=== PATIENT | female | born 1990 | race Caucasian/White ===

== ENCOUNTER 2018-02-08 18:55 | Inpatient (IN) | payer OTHER ==
[2018-02-08 20:34] VITALS: BMI 39.2
[2018-02-08] MEDS ORDERED: DINOPROSTONE 10 MG VAGINAL SUPPOSITORY VG ONE (20:45)
[2018-02-08] MEDS ORDERED: TUBERCULIN PPD 5 TU/0.1ML SYRINGE (IN PATIENT USE ONLY) ID ONE (21:00)
[2018-02-08 21:22] LABS: BASO % 0.2 % (0-2.0); EOS % 0.8 % (0-4.5); HEMOGLOBIN 13.2 GM/dL (10.7-15.3); LYMPH % 29.8 % (8-40); MCH 28.8 pg (25.7-33.7); MEAN CELL VOLUME 84.7 fl (80-96); MEAN PLT VOLUME 8.8 fl (7.5-11.1); MONO % 8.8 % (3.8-10.2); NEUT % 60.4 % (42.8-82.8); PLATELET COUNT 253 K/MM3 (134-434); RDW 14.4 % (11.6-15.6); WHITE BLOOD COUNT 7.5 K/mm3 (4.0-10.0)
[2018-02-08 21:29] LABS: ANION GAP 11 (8-16); BLOOD UREA NITROGEN 7 mg/dL (7-18); CALCIUM 9.3 mg/dL (8.5-10.1); CHLORIDE 106 mmol/L (98-107); CO2 23 mmol/L (21-32); CREATININE 0.6 mg/dL (0.55-1.02); GLUCOSE,RANDOM 83 mg/dL (74-106); POTASSIUM 4.3 mmol/L (3.5-5.1); SODIUM 140 mmol/L (136-145)
[2018-02-08 21:35] LABS: INR 1.05 (0.82-1.09); PROTHROMBIN TIME (PATIENT) 11.9 SEC (9.7-13.0)
--- NOTE | 2018-02-08 22:28 | HP ---
Past Medical History - Primary Care Physician PCP:: Jasbir Zambrano - Admission Chief Complaint: 40.5 weeks, postdate for cervidil induction History of Present Illness: 27 yo g 1 p0 edc by sono 02/03/18 referred for cervidil induction, cx 1 cm 50 vc -3 mi, fhr cat 1, , cervidil induction risks discussed , ulternatives explained History Source: Patient Limitations to Obtaining History: No Limitations - Past Medical History ...: 1 ...Para: 0 ...Term: 0 ...: 0 ...Spon : 0 ...Induced : 0 ...Multiple Gestation: 0 ...LMP: 04/27/17 ... Weeks Gestation by Dates: 41.0 ...EDC by Dates: 02/01/18 ...EDC by Sono: 02/03/18 - Past Surgical History Hx Myomectomy: No Hx Transabdominal Cerclage: No - Smoking History Smoking history: Never smoked Have you smoked in the past 12 months: No - Alcohol/Substance Use Hx Alcohol Use: No - Social History Usual Living Arrangement: Yes: With Spouse History of Recent Travel: No Home Medications - Allergies Allergies/Adverse Reactions: Allergies Allergy/AdvReac Type Severity Reaction Status Date / Time No Known Allergies Allergy Verified 02/04/18 14:34 - Home Medications Home Medications: Ambulatory Orders Vitamins (Sjr) - 1 tab PO DAILY 02/04/18 Review of Systems - Review of Systems Constitutional: reports: No Symptoms Eyes: reports: No Symptoms HENT: reports: No Symptoms Neck: reports: No Symptoms Cardiovascular: reports: No Symptoms Respiratory: reports: No Symptoms Gastrointestinal: reports: No Symptoms Genitourinary: reports: No Symptoms Breasts: reports: No Symptoms Reported Musculoskeletal: reports: No Symptoms Integumentary: reports: No Symptoms Neurological: reports: No Symptoms Endocrine: reports: No Symptoms Hematology/Lymphatic: reports: No Symptoms Psychiatric: reports: No Symptoms Physical Exam - Maternity Vital Signs: Vital Signs Temperature 98.3 F 02/08/18 22:00 Pulse Rate 88 02/08/18 22:00 Respiratory Rate 20 02/08/18 22:00 Blood Pressure 135/77 02/08/18 22:00 O2 Sat by Pulse Oximetry (%) Constitutional: Yes: Well Nourished, No Distress, Calm Eyes: Yes: WNL, Conjunctiva Clear, EOM Intact HENT: Yes: WNL, Atraumatic, Normocephalic Neck: Yes: WNL, Supple, Trachea Midline Cardiovascular: Yes: WNL, Regular Rate and Rhythm Breast(s): Yes: WNL - Abdominal Exam/OB Fundal Height: 40 Number of Fetuses: Single Presentation: Vertex Contractions: No Intensity: Unaware Monitor Mode: External Heart Rate Location: [facility] Category: I Accelerations: Uniform Decelerations: None - Vaginal Exam/OB Vaginal Bleediing: No Speculum Exam: No Dilatation (cm): 1 Effacement (%): 50 Amniotic Membrane Status: Intact Presentation: Vertex/Position Station: -3 - Physical Exam Musculoskeletal: Yes: WNL Extremities: Yes: WNL Edema: Yes Edema: LLE: Trace, RLE: Trace Deep Tendon Reflex Grade: Normal +2 Psychiatric: Yes: WNL - Labs Lab Results: CBC, BMP 02/08/18 20:00 02/08/18 20:00 Hemorrhage Risk Assessment - Risk Factors Medium Risk Factors: Yes: None High Risk Factors: Yes: None Risk Score: 1 Risk Level: Medium Risk Problem List - Problems (1) Postmaturity , 40-42 weeks gestation Code(s): O48.0 - POST-TERM (2) Elective induction of labor planned Code(s): DJW9288 - Assessment/Plan admit, fhm, cervidil induction, risks expalined cervidil inserted at 10:10 pm
[2018-02-08] MEDS ORDERED: PROMETHAZINE HCL 25 MG/1 ML VIAL IVPUSH ONE (22:45)
[2018-02-08] MEDS ORDERED: BUTORPHANOL TARTRATE 1 MG/ML VIAL IVPUSH ONE (22:45)
--- NOTE | 2018-02-09 09:26 | PN ---
Ante-Partal Exam - Subjective Subjective: Patient reports back cramping No bleeding No leakage of fluid Vital Signs: Vital Signs Temperature 98.4 F 02/09/18 08:25 Pulse Rate 80 02/09/18 09:00 Respiratory Rate 18 02/09/18 09:00 Blood Pressure 123/75 02/09/18 09:00 O2 Sat by Pulse Oximetry (%) Bleeding: No Headache: No Visual changes: No Right upper quadrant pain: No - Contractions Contractions: Yes Regularity: Regular Intensity: Mild Monitor Mode: External - Exam during Labor Heart Rate: 125 Variability: Moderate Category: I Monitor Accelerations: Absent Monitor Decelerations: None Exam: Vaginal Dilatation (cm): 2 Effacement (%): 50 Amniotic Membrane Status: Intact Presentation: Vertex Station: -3 - Intrapartum Hemorrhage Risk Medium Risk Factors: None High Risk Factors: None Risk Score: 0 Risk Level: Low Risk - Assessment/Plan Assessment/Plan: 27 yo induction of labor 1. Improvement in cervical exam, will start pitocoin per protocol 2. GBS neg 3. Category I FHT 4. Will offer pain medication upon patient's request 5. Will proceed with expectant management
[2018-02-09] MEDS: DEXTROSE 5%-LACTATED RINGERS 1,000 ML IV SCH ×3 (09:30→19:14)
[2018-02-09] MEDS ORDERED: OXYTOCIN 30 UNITS in 0.9% NS 30 UNIT/500 ML INFUS.BAG IVPB SCH (10:00)
[2018-02-09] MEDS ORDERED: PROMETHAZINE HCL 25 MG/1 ML VIAL IVPUSH ONE (10:56)
[2018-02-09] MEDS ORDERED: BUTORPHANOL TARTRATE 1 MG/ML VIAL IVPUSH ONE (10:56)
[2018-02-09] MEDS ORDERED: BUTORPHANOL TARTRATE 1 MG/ML VIAL ONE ×2 (15:38)
[2018-02-09] MEDS ORDERED: PROMETHAZINE HCL 25 MG/1 ML VIAL ONE (15:39)
[2018-02-09] MEDS: ELECTROLYTE-148 SOLN 1,000 ML IV SCH ×2 (16:50→18:33)
[2018-02-09] MEDS ORDERED: FENTANYL/BUPIVACAINE/NS/PF - PCEA - 50 ML DISP.SYRIN EP ONE ×2 (16:51→21:32)
[2018-02-09] MEDS ORDERED: BUPIVACAINE HCL/PF 0.25% (2.5MG/ML) 10 ML VIAL ONE ×2 (17:19→17:53)
[2018-02-09] MEDS ORDERED: NALOXONE HCL 0.4 MG/ML VIAL IVPUSH PRN (18:02)
--- NOTE | 2018-02-09 18:06 | PN ---
Ante-Partal Exam - Subjective Subjective: patient comfortable s/p epidural No complaints Vital Signs: Vital Signs Temperature 98.4 F 02/09/18 15:56 Pulse Rate 87 02/09/18 16:59 Respiratory Rate 18 02/09/18 16:59 Blood Pressure 139/80 02/09/18 16:59 O2 Sat by Pulse Oximetry (%) Bleeding: No Headache: No Visual changes: No Right upper quadrant pain: No - Contractions Contractions: Yes Regularity: Regular Intensity: Unaware Monitor Mode: External - Exam during Labor Heart Rate: 130 Variability: Moderate Category: I Monitor Accelerations: Absent Monitor Decelerations: None Exam: Vaginal (4) Dilatation (cm): 4 Effacement (%): 100 Amniotic Membrane Status: Ruptured Station: -1 - Intrapartum Hemorrhage Risk Medium Risk Factors: None High Risk Factors: None Risk Score: 0 Risk Level: Low Risk - Assessment/Plan Assessment/Plan: 27 yo P1 active labor 1. Good cervical change 2. pain controlled with epidrual 3. GBS neg 4. Category I FHT 5. Will proceed with expectant managemetn
[2018-02-09] MEDS ORDERED: FENTANYL/BUPIVACAINE/NS/PF - PCEA - 50 ML DISP.SYRIN EP SCH (18:15)
[2018-02-09] MEDS ORDERED: OXYTOCIN 20 UNITS in 0.9% NS 20 UNIT/1,000 ML INFUS.BAG IV ONE (23:17)
[2018-02-09] MEDS ORDERED: LIDOCAINE HCL 1% PRESERVATIVE FREE - 30ML VIAL ONE (23:17)
[2018-02-10] MEDS ORDERED: METHYLERGONOVINE MALEATE 0.2 MG/1 ML AMP IM PRN (01:15)
[2018-02-10] MEDS ORDERED: WITCH HAZEL 50% (TUCKS) 40 PAD/JAR PAD TP PRN (01:15)
[2018-02-10] MEDS ORDERED: BENZOCAINE 28 GM HEMORRHOIDAL OINTMENT TP PRN (01:15)
[2018-02-10] MEDS ORDERED: oxyCODONE HCL 5 MG TABLET PO PRN (01:15)
[2018-02-10] MEDS ORDERED: OXYTOCIN 20 UNITS in 0.9% NS 20 UNIT/1,000 ML INFUS.BAG IV SCH (01:15)
[2018-02-10] MEDS ORDERED: BENZOCAINE 20% 57 GM BOTTLE TP PRN (01:15)
[2018-02-10] MEDS ORDERED: BISACODYL 10 MG SUPP.RECT RC PRN (01:15)
--- NOTE | 2018-02-10 01:15 | PN ---
Delivery - Delivery Vaginal Delivery: No Problems Type of Anesthesia: Epidural Episiotomy/Laceration: 2nd degree EBL (cc): 400 Delivery, Single - Stages of Labor Date 1st Stage Initiatied: 02/09/18 Time 1st Stage Initiated: 10:00 Date 2nd Stage Initiated: 02/10/18 Time 2nd Stage Initiated: 00:10 Date of Delivery: 02/10/18 Time of Delivery: 00:45 Date Placenta Delivered: 02/10/18 Time Placenta Delivered: 01:04 Placenta: Yes: Spontaneous - Condition of Gender: Female Position: Left, OA Total Hours ROM (Hrs/Mins): 9 hours 29 minutes - 1 Minute Total Score: 9 5 Minutes Total Score: 9 - Feeding Plan Initial Plan: Elected not to breastfeed exclusively throughout hospitalization Remarks - Remarks Remarks: Patient progressed to fully dilated and at 0045 via delivered a viable female infant in FORTUNATO position, APGARs 9,9. Weight and length unknown at this time. Head delivered spontaneously nuchal cord noted and reduced, shoulders and body followed without difficulty. with spontaneous cry and placed on mother's abdomen. Nose and mouth was bulb suctioned. Cord was clamped and cut. Perineum and vagina examined, a second degree laceration was noted and repaired in the usual fashion. Rectal exam revealed no sutures in rectum. Placenta was delivered spontaneously and intact. 20 units of pitocin in 1 L IVF was given. All counts correct x 2. Mother and stable in LDR. EBL 400cc.
[2018-02-10] MEDS: ACETAMINOPHEN 325 MG TABLET (FP) PO PRN ×2 (07:02→19:22)
[2018-02-10] MEDS: IBUPROFEN 600 MG TABLET (FP) PO PRN ×2 (07:02→19:22)
[2018-02-10] MEDS: PRENATAL VITAMINS W/ FOLIC ACID TABLET (FP) PO SCH (09:43)
[2018-02-10] MEDS: PANTOPRAZOLE 40 MG TABLET (FP) PO SCH (17:03)
[2018-02-11] MEDS: IBUPROFEN 600 MG TABLET (FP) PO PRN ×4 (03:17→20:46)
[2018-02-11] MEDS: ACETAMINOPHEN 325 MG TABLET (FP) PO PRN ×4 (03:17→20:46)
[2018-02-11 08:04] LABS: BASO % 0.5 % (0-2.0); EOS % 1.7 % (0-4.5); HEMATOCRIT 31.2 % (32.4-45.2); HEMOGLOBIN 10.7 GM/dL (10.7-15.3); LYMPH % 34.8 % (8-40); MCH 29.6 pg (25.7-33.7); MCHC 34.4 g/dl (32.0-36.0); MEAN CELL VOLUME 86.2 fl (80-96); MEAN PLT VOLUME 8.1 fl (7.5-11.1); MONO % 7.4 % (3.8-10.2); NEUT % 55.6 % (42.8-82.8); PLATELET COUNT 228 K/MM3 (134-434); RBC 3.62 M/mm3 (3.60-5.2); RDW 14.5 % (11.6-15.6); WHITE BLOOD COUNT 8.8 K/mm3 (4.0-10.0)
[2018-02-11] MEDS: PANTOPRAZOLE 40 MG TABLET (FP) PO SCH (09:22)
[2018-02-11] MEDS: PRENATAL VITAMINS W/ FOLIC ACID TABLET (FP) PO SCH (09:23)
[2018-02-11] MEDS ORDERED: DIPHTH,PERTUSS(ACELL),TET 0.5 ML DISP.SYRIN IM ONE (10:00)
--- NOTE | 2018-02-11 10:24 | PN ---
Post Progress Note - Subjective Subjective: Patient without acute complaints. Reports tolerating oral intake without nausea or vomiting. Ambulating without dizziness. Denies fevers or chills. Pain well controlled with oral pain medication. without difficulty. Passing flatus. Post Day: 1 Type of Delivery: Vital Signs: Vital Signs Temperature 98.2 F 02/11/18 07:47 Pulse Rate 83 02/11/18 07:47 Respiratory Rate 20 02/11/18 07:47 Blood Pressure 120/71 02/11/18 07:47 O2 Sat by Pulse Oximetry (%) 98 02/09/18 19:00 Breast Exam: Yes: Soft. No: Cracked Nipples Uterus: Yes: Fundus Firm, Fundus below umbilicus Abdomen/GI: Yes: Abdomen soft, Passing flatus, Tolerating PO. No: Abdominal Distention, Tender Lochia: Yes: Serosa Extremities: Yes: Calves non-tender. No: Edema Perineum: Yes: Laceration Activity: Ambulating - Labs Labs: CBC WBC 8.8 K/mm3 (4.0-10.0) 02/11/18 07:45 RBC 3.62 M/mm3 (3.60-5.2) 02/11/18 07:45 Hgb 10.7 GM/dL (10.7-15.3) 02/11/18 07:45 Hct 31.2 % (32.4-45.2) L D 02/11/18 07:45 MCV 86.2 fl (80-96) 02/11/18 07:45 MCH 29.6 pg (25.7-33.7) 02/11/18 07:45 MCHC 34.4 g/dl (32.0-36.0) 02/11/18 07:45 RDW 14.5 % (11.6-15.6) 02/11/18 07:45 Plt Count 228 K/MM3 (134-434) 02/11/18 07:45 MPV 8.1 fl (7.5-11.1) 02/11/18 07:45 Absolute Neuts (auto) 4.9 # 02/11/18 07:45 Neutrophils % 55.6 % (42.8-82.8) 02/11/18 07:45 Lymphocytes % 34.8 % (8-40) 02/11/18 07:45 Monocytes % 7.4 % (3.8-10.2) 02/11/18 07:45 Eosinophils % 1.7 % (0-4.5) D 02/11/18 07:45 Basophils % 0.5 % (0-2.0) 02/11/18 07:45 Nucleated RBC % 0 % (0-0) 02/11/18 07:45 Assessment/Plan 27 yo PPD # 1 s/p , afebrile, vital signs stable, doing well 1. Continue routine care. 2. CBC stable, without signs of anemia 3. Rh positive status, no rhogam indicated. 4. Encourage ambulation 5. Continue oral pain medication 6. Anticipate discharge home day #2
[2018-02-11] MEDS ORDERED: SENNOSIDES/DOCUSATE COMBO (SENNA PLUS) TABLET (UD) PO PRN (22:00)
--- NOTE | 2018-02-12 08:14 | PN ---
Post Progress Note - Subjective Subjective: Patient without acute complaints. Reports tolerating oral intake without nausea or vomiting. Ambulating without dizziness. Denies fevers or chills. Pain well controlled with oral pain medication. without difficulty. Passing flatus. Post Day: 2 Type of Delivery: Vital Signs: Vital Signs Temperature 98.7 F 02/11/18 20:42 Pulse Rate 80 02/11/18 20:42 Respiratory Rate 20 02/11/18 20:42 Blood Pressure 134/78 02/11/18 20:42 O2 Sat by Pulse Oximetry (%) 98 02/09/18 19:00 Breast Exam: Yes: Soft Uterus: Yes: Fundus Firm, Fundus below umbilicus Abdomen/GI: Yes: Abdomen soft, Passing flatus, Tolerating PO. No: Abdominal Distention, Tender Lochia: Yes: Serosa Lochia, amount: Small Extremities: Yes: Calves non-tender, Edema (trace) Perineum: Yes: Laceration Activity: Ambulating - Labs Labs: CBC WBC 8.8 K/mm3 (4.0-10.0) 02/11/18 07:45 RBC 3.62 M/mm3 (3.60-5.2) 02/11/18 07:45 Hgb 10.7 GM/dL (10.7-15.3) 02/11/18 07:45 Hct 31.2 % (32.4-45.2) L D 02/11/18 07:45 MCV 86.2 fl (80-96) 02/11/18 07:45 MCH 29.6 pg (25.7-33.7) 02/11/18 07:45 MCHC 34.4 g/dl (32.0-36.0) 02/11/18 07:45 RDW 14.5 % (11.6-15.6) 02/11/18 07:45 Plt Count 228 K/MM3 (134-434) 02/11/18 07:45 MPV 8.1 fl (7.5-11.1) 02/11/18 07:45 Absolute Neuts (auto) 4.9 # 02/11/18 07:45 Neutrophils % 55.6 % (42.8-82.8) 02/11/18 07:45 Lymphocytes % 34.8 % (8-40) 02/11/18 07:45 Monocytes % 7.4 % (3.8-10.2) 02/11/18 07:45 Eosinophils % 1.7 % (0-4.5) D 02/11/18 07:45 Basophils % 0.5 % (0-2.0) 02/11/18 07:45 Nucleated RBC % 0 % (0-0) 02/11/18 07:45 Assessment/Plan 27 yo PPD # 2 s/p , afebrile, vital signs stable, doing well 1. Patient stable for discharge home today. 2. Patient encouraged to contact MD for: - Severe pain not controlled by oral pain medication - Fevers or chills - Nausea or vomiting, intolerance of oral intake 3. Patient to follow up in office in 4-6 weeks for visit
--- NOTE | 2018-02-12 08:16 | DS ---
Physical Exam-WEB COORDINATOR Vital Signs: Vital Signs Temperature 98.7 F 02/11/18 20:42 Pulse Rate 80 02/11/18 20:42 Respiratory Rate 20 02/11/18 20:42 Blood Pressure 134/78 02/11/18 20:42 O2 Sat by Pulse Oximetry (%) 98 02/09/18 19:00 Labs: CBC, BMP 02/11/18 07:45 02/08/18 20:00 Delivery - Delivery Vaginal Delivery: No Problems Type of Anesthesia: Local, Epidural Episiotomy/Laceration: 2nd degree EBL (cc): 400 Delivery, Single - Stages of Labor Date 1st Stage Initiatied: 02/09/18 Time 1st Stage Initiated: 10:00 Date 2nd Stage Initiated: 02/10/18 Time 2nd Stage Initiated: 00:10 Date of Delivery: 02/10/18 Time of Delivery: 00:45 Time Placenta Delivered: 01:04 Placenta: Yes: Spontaneous - Condition of Casino Porter/Instant Printer Operator Present: No Infant Gender: Female Weight: 7 lb Position: Left, OA Total Hours ROM (Hrs/Mins): 9 hours 29 minutes - 1 Minute Total Score: 9 5 Minutes Total Score: 9 - [place] Feeding Plan Initial Plan: Elected not to breastfeed exclusively throughout hospitalization Discharge Summary Reason For Visit: INDUCTION OF LABOR Current Active Problems Elective induction of labor planned (Acute) Postmaturity , 40-42 weeks gestation (Acute) Vaginal delivery (Acute) Procedures: Principal: Vaginal delivery Other Procedures: Induction of labor Hospital Course: Patient was admitted for postdates IOL on 02/08/2018. She progressed to deliver via a viable female infant on 02/10/18. PPD # 1 patient ambulated, voiding, passing gas, tolerating oral intake and with adequate pain control. Noted to have mild asymptomatic anemia She fulfilled all criteria for discharge PPD #2 Condition: Good - Instructions Diet, Activity, Other Instructions: Physical activity Resume your normal everyday activity as tolerated no heavy lifting or exercise until seen by your surgeon. You may walk unlimited daniel of and climb stairs. You may resume driving the car when you feel safe and comfortable behind the wheel. No sexual activity as instructed. Diet There are no dietary restrictions. Eat healthy, high-fiber foods. Drink 6 to 8 glasses of liquid each day. This will assist in keeping your bowels are regular. Pain management You may take Tylenol or acetaminophen or Ibuprofen (for example, Motrin, Advil etc.) from my pain prescription medication is ordered should be taken as prescribed for moderate to severe pain. Call MD for any of the following: Severe pain not relieved by medication Fever of 101 or higher Excessive bleeding or drainage on dressing Inability to urinate Referrals: Krupa Peck MD [Staff Physician] - Disposition: HOME - Home Medications Comprehensive Discharge Medication List: Ambulatory Orders Vitamins (Sjr) - 1 tab PO DAILY 02/04/18
[2018-02-12] MEDS: IBUPROFEN 600 MG TABLET (FP) PO PRN (08:44)
[2018-02-12] MEDS: ACETAMINOPHEN 325 MG TABLET (FP) PO PRN (08:45)
[2018-02-12] MEDS: PRENATAL VITAMINS W/ FOLIC ACID TABLET (FP) PO SCH (10:00)
[2018-02-12] MEDS: PANTOPRAZOLE 40 MG TABLET (FP) PO SCH (10:30)
[2018-02-12 12:20] VITALS: BP 117/57; PULSE 82; TEMP 98.4
== END 2018-02-12 12:00 | disposition home or self-care (01) | DRG 775 ==
LOC: JLDR 18:55 → J3W 02-10 02:26
PROVIDERS: ADMIT Obstetrics & Gynecology; ATTEND Obstetrics & Gynecology
PROC: 3E0P7VZ Introduction of Hormone into Female Reproductive, Via Natural or Artificial Opening (ICD-10-PCS; 2018-02-08)
PROC: 10E0XZZ Delivery of Products of Conception, External Approach (ICD-10-PCS; principal; 2018-02-10)
PROC: 0W8NXZZ Division of Female Perineum, External Approach (ICD-10-PCS; 2018-02-10)
DX: O70.1 Second degree perineal laceration during delivery (principal); O48.0 Post-term pregnancy; O99.02 Anemia complicating childbirth; Z3A.40 40 weeks gestation of pregnancy; Z37.0 Single live birth
CPT/HCPCS: 36415; 59409; 80048; 85025; 85610; 85730; 86593; 86850; 86900; 86901

== ENCOUNTER 2018-04-13 14:01 | Inpatient (IN) | payer OTHER ==
--- NOTE | 2018-04-13 14:18 | PDOC ---
History of Present Illness - History of Present Illness Initial Comments: The patient is a 27 year old female who is 8 weeks and presents from urgent care with complaints with of epigastric pain since last night. Patient states that last night around 12 she ate Pashto food and approx 2.5 hours later she began experiencing what she describes as pulsating epigastric pain that radiates to her back, worse with deep inspiration, and rates 10/10. She states that she vomited 2x last night and felt better. She went to urgent care earlier today and was sent to the ER to r/o PE due to her family history and elevated D dimer of 709. Patient notes that she was tested negative for Lupus 2 weeks ago and started oral contraceptives 5 days ago. On exam, she states that she feels a lot better than she did last night and her epigastric pain only hurts when palpated. Denies any recent chest pain, shortness of breath, or leg swelling. Denies any recent fever or chills. Family Hx: Brother had pulmonary emboli in 2017 and dx w/ Lupus. Surgical Hx: Left breast cyst removal <Jaylene Blackburn - Last Filed: 04/13/18 19:07> - General History Source: Patient Exam Limitations: No Limitations <Kacy Coyne - Last Filed: 04/14/18 12:37> - General Chief Complaint: Pain Stated Complaint: ABDOMINAL PAIN Time Seen by Provider: 04/13/18 14:13 Past History <Jaylene Blackburn - Last Filed: 04/13/18 19:07> - Past Medical History Asthma: No Cancer: No Cardiac Disorders: No CVA: No COPD: No Diabetes: No HTN: No Seizures: No Thyroid Disease: No - Suicide/Smoking/Psychosocial Hx Smoking History: Never smoked Have you smoked in the past 12 months: No Hx Alcohol Use: No Drug/Substance Use Hx: No Hx Substance Use Treatment: No <Kacy Coyne - Last Filed: 04/14/18 12:37> - Past Medical History Allergies/Adverse Reactions: Allergies Allergy/AdvReac Type Severity Reaction Status Date / Time No Known Allergies Allergy Verified 04/13/18 14:05 Home Medications: Ambulatory Orders Blisovi Fe 1-20 Tablet 1 - 20 mcg PO DAILY 04/13/18 Review of Systems - Review of Systems Comments:: GENERAL/CONSTITUTIONAL: No: fever, chills, weakness, loss of appetite. HEAD, EYES, EARS, NOSE AND THROAT: No: change in vision, ear pain, discharge, sore throat, throat swelling. CARDIOVASCULAR: No: chest pain, lightheadedness, palpitations, syncope RESPIRATORY: No: cough, shortness of breath, wheezing, hemoptysis, stridor. GASTROINTESTINAL: +epigastric pain radiating to her back +vomited (2x last night ) No: nausea, diarrhea, rectal bleeding, constipation. GENITOURINARY: No: dysuria, hematuria, frequency, urgency, flank pain. MUSCULOSKELETAL: No: back pain, neck pain, joint pain, muscle swelling or pain SKIN: No: lesions, pallor, rash or easy bruising. NEUROLOGIC: No: headache, vertigo, paresthesias, weakness ENDOCRINE: No: unexplained weight gain or loss HEMATOLOGIC/LYMPHATIC: No: anemia, easy bleeding, swelling nodes <Jaylene Blackburn - Last Filed: 04/13/18 19:07> *Physical Exam - Vital Signs Last Vital Signs Temp Pulse Resp BP Pulse Ox 97.6 F 61 18 135/68 99 04/13/18 14:01 04/13/18 14:01 04/13/18 14:01 04/13/18 14:01 04/13/18 14:01 - Physical Exam Comments: GENERAL: The patient is in no acute distress. HEAD: Normal with no signs of trauma. EYES: PERRLA, EOMI, sclera anicteric, conjunctiva clear. ENT: Ears normal, nares patent, oropharynx clear without exudates. Moist mucous membranes. NECK: Normal range of motion, supple without lymphadenopathy, JVD, or masses. LUNGS: Breath sounds equal, clear to auscultation bilaterally. No wheezes, and no crackles. HEART:Regular rate and rhythm, normal S1 and S2 without murmur, rub or gallop. ABDOMEN: Soft, mild epigastric tenderness to palpation, normoactive bowel sounds. No guarding, no rebound. EXTREMITIES: Normal range of motion, no edema. No clubbing or cyanosis. No erythema, or tenderness. NEUROLOGICAL: Cranial nerves II through XII grossly intact. Normal speech. No focal neurological deficits. MUSCULOSKELETAL: Back nontender to palpation, no CVA tenderness SKIN: Warm, Dry, normal turgor, no rashes or lesions noted. <Jaylene Blackburn - Last Filed: 04/13/18 19:07> - Vital Signs Last Vital Signs Temp Pulse Resp BP Pulse Ox 97.6 F 61 148 H 135/68 99 04/13/18 14:01 04/13/18 14:01 04/13/18 14:01 04/13/18 14:01 04/13/18 14:01 <Kacy Coyne - Last Filed: 04/14/18 12:37> ED Treatment Course - LABORATORY CBC & Chemistry Diagram: 04/13/18 15:18 04/13/18 15:18 - RADIOLOGY Radiograph Interpretation: US Abdomen Impression: Hepatomegaly with a slightly coarse echotexture. Cannot rule out minimal fatty infiltration. Please correlate with liver enzymes. Multiple small gallstones layering posteriorly without sonographic evidence of acute cholecystitis. Reported by: Mouna Gonzalez MD 04/13/181818 - Additional Consults Time Called: 18:13 (Paged service awaiting callback) Consult/PCP: Domingo Syed <Jaylene Blackburn - Last Filed: 04/13/18 19:07> - LABORATORY CBC & Chemistry Diagram: 04/14/18 06:51 04/14/18 06:51 <Kacy Coyne - Last Filed: 04/14/18 12:37> Medical Decision Making - Medical Decision Making 04/13/18 18:39 Laboratory Tests 04/13/18 04/13/18 15:18 15:18 WBC 7.8 Hgb 13.6 Hct 40.0 D Plt Count 314 D Creatinine 0.6 Total Bilirubin 1.3 H AST 214 H ALT 161 H Alkaline Phosphatase 179 H Total Amylase 70 Lipase 317 Ultrasound demonstrates several small stones, layering in the posterior gallbladder. No pericholecystic fluid, no bladder wall thickening. CBD measures 0.40 cm. Case reviewed with Dr. Syed. She will be admitted for further work up PMD will admit Clinical impression: biliary colic, initial presentation <Kacy Coyne - Last Filed: 04/14/18 12:37> *DC/Admit/Observation/Transfer - Attestations Scribe Attestion: 04/13/18 15:45 Documentation prepared by Jaylene Blackburn, acting as medical van driver for Kacy Coyne MD. <Jaylene Blackburn - Last Filed: 04/13/18 19:07> - Discharge Dispostion Decision to Admit order: Yes <Kacy Coyne - Last Filed: 04/14/18 12:37> Diagnosis at time of Disposition: Biliary colic - Discharge Dispostion Condition at time of disposition: Stable
[2018-04-13 16:31] LABS: ALBUMIN 3.6 g/dl (3.4-5.0); ALK PHOS 179 U/L (45-117); AMYLASE 70 U/L (25-115); ANION GAP 9 MMOL/L (8-16); BILIRUBIN,TOTAL 1.3 mg/dL (0.2-1); BLOOD UREA NITROGEN 8 mg/dL (7-18); CALCIUM 9.5 mg/dL (8.5-10.1); CHLORIDE 108 mmol/L (98-107); CO2 24 mmol/L (21-32); CREATININE 0.6 mg/dL (0.55-1.3); GLUCOSE,RANDOM 77 mg/dL (74-106); LIPASE 317 U/L (73-393); POTASSIUM 4.3 mmol/L (3.5-5.1); SGOT/AST 214 U/L (15-37); SGPT/ALT 161 U/L (13-61); SODIUM 141 mmol/L (136-145); TOT PROT 7.5 g/dl (6.4-8.2)
[2018-04-13 16:40] LABS: BASO % 0.3 % (0-2.0); EOS % 0.5 % (0-4.5); HEMOGLOBIN 13.6 GM/dL (10.7-15.3); LYMPH % 28.8 % (8-40); MCH 28.7 pg (25.7-33.7); MCHC 33.9 g/dl (32.0-36.0); MEAN CELL VOLUME 84.9 fl (80-96); MEAN PLT VOLUME 8.7 fl (7.5-11.1); MONO % 6.9 % (3.8-10.2); NEUT % 63.5 % (42.8-82.8); PLATELET COUNT 314 K/MM3 (134-434); RBC 4.72 M/mm3 (3.60-5.2); RDW 12.8 % (11.6-15.6); WHITE BLOOD COUNT 7.8 K/mm3 (4.0-10.0)
[2018-04-13] MEDS: SODIUM CHLORIDE 1,000 ML IV STA ×2 (18:49→22:42)
[2018-04-13] MEDS ORDERED: ONDANSETRON 4 MG/2 ML VIAL IVPUSH PRN (19:07)
[2018-04-13] MEDS ORDERED: morphine SULFATE 4 MG/ML VIAL IVPUSH PRN (19:07)
[2018-04-13] MEDS ORDERED: D5-1/2NS+10 MEQ KCL - 10 MEQ/1,000 ML INFUS.BAG IV SCH (19:15)
[2018-04-13] MEDS ORDERED: ACETAMINOPHEN 325 MG TABLET (FP) PO PRN (19:58)
[2018-04-13] MEDS ORDERED: morphine CARPU-JECT 2 MG/1 ML DISP.SYRIN IVPUSH PRN (19:58)
[2018-04-13] MEDS ORDERED: MORPHINE SULFATE 2 MG/ML VIAL IVPUSH PRN (20:03)
--- NOTE | 2018-04-13 20:07 | CONSULT ---
Consult Consult Specialty:: General Surgery Referred by:: Kacy Coyne Reason for Consultation:: gallstones, epigastric pain, elevated LFTs - History of Present Illness Chief Complaint: epigastric pain, n/v History of Present Illness: 27yo obese F, 2m from first child , presents with epigastric pain radiating through to back, associated with 2 episodes nb/nb vomiting ~ 1 and 4am after dinner of Spanish food last night. She experienced similar pain about 4 weeks ago just after her , but thought it was related to that; and another episode just after the baby had been born, which she attributed to pains. No one else who ate the same food has been sick. She is feeling better in ER after medication. She went to [facility] this morning, where she got labs done showing elevated LFTs but normal wbc and lipase. They also noted an increased D-dimer and sent her to ER to r/o PE, but her symptoms are more consistent with gallbladder disease. She is afebrile, with similar labs here, and US showed multiple small gallstones without signs of cholecystitis. She is seen and examined in the holding area with her at bedside. She states she is feeling better at this time, only tender when palpated in the epigastric area. She has not eaten today, just had a sip or two of water shortly ago. - History Source History Provided By: Patient Limitations to Obtaining History: No Limitations - Past Medical History Reproductive: No: Postmenopausal ...: No ...Para: 1 (2m ago today) Heme/Onc: No: Hypercoaguable State (negative for lupus anticoagulant per pt per pt's MD) Additional Medical History: axillary breast tissue - Past Surgical History Additional Surgical History: excision of left axillary breast tissue - Alcohol/Substance Use Hx Alcohol Use: Yes (social/occasional) History of Substance Use: reports: None - Smoking History Smoking history: Never smoked Have you smoked in the past 12 months: No - Social History Usual Living Arrangement: With Spouse ADL: Independent Occupation: dental hygienist History of Recent Travel: No Home Medications - Allergies Allergies/Adverse Reactions: Allergies Allergy/AdvReac Type Severity Reaction Status Date / Time No Known Allergies Allergy Verified 04/13/18 14:05 - Home Medications Home Medications: Ambulatory Orders Blisovi Fe 1-20 Tablet 1 - 20 mcg PO DAILY 04/13/18 Family Disease History - Family Disease History Other Family History: others with gallbladder problems Review of Systems - Review of Systems Constitutional: denies: Chills, Fever, Loss of Appetite Eyes: reports: Other (wears glasses). denies: Recent Change in Vision HENT: denies: Difficult Swallowing, Hearing Loss, Nasal Congestion, Throat Pain Neck: denies: Swollen Glands, Tenderness Cardiovascular: denies: Chest Pain, Palpitations Respiratory: denies: Cough, SOB Gastrointestinal: reports: Abdominal Pain (with hpi), Nausea (with hpi), Vomiting (with hpi). denies: Constipation, Diarrhea, Vomiting Blood Genitourinary: denies: Burning, Dysuria Breasts: reports: Other (no longer ) Musculoskeletal: denies: Back Pain, Joint Pain, Muscle Pain Integumentary: denies: Change in Color, Rash Neurological: denies: Dizziness, Headache Psychiatric: denies: Anxiety, Depression Physical Exam Vital Signs: Vital Signs Temperature 98.5 F 04/13/18 19:52 Pulse Rate 64 04/13/18 19:52 Respiratory Rate 18 04/13/18 19:52 Blood Pressure 121/76 04/13/18 19:52 O2 Sat by Pulse Oximetry (%) 99 04/13/18 19:52 Constitutional: Yes: No Distress, Calm, Obese Eyes: Yes: Conjunctiva Clear, EOM Intact. No: Sclera Icterus HENT: Yes: Atraumatic, Normocephalic Neck: Yes: Supple, Trachea Midline Cardiovascular: Yes: Regular Rate and Rhythm. No: Murmur Respiratory: Yes: Regular, CTA Bilaterally Gastrointestinal: Yes: Normal Bowel Sounds, Soft, Abdomen, Obese, Tenderness ( RUQ and epigastric, no marcella/guard), Tenderness, Epigastrium. No: Distention, Tenderness, Rebound ...Rectal Exam: Yes: Deferred Renal/: No: CVA Tenderness - Left, CVA Tenderness - Right Breast(s): Yes: Other (healed left axillary scar, no palpable mass of tissue in right axilla) Musculoskeletal: No: Joint Stiffness, Joint Swelling Extremities: No: Cool, Cyanosis Edema: No Peripheral Pulses WNL: Yes Integumentary: Yes: Body Piercing (old (not used in years) supraumbilical site) . No: Jaundice, Rash, Tattoos Neurological: Yes: Alert, Oriented Psychiatric: Yes: Alert, Oriented Labs: CBC, BMP 04/13/18 15:18 04/13/18 15:18 CMP Sodium 141 mmol/L (136-145) 04/13/18 15:18 Potassium 4.3 mmol/L (3.5-5.1) 04/13/18 15:18 Chloride 108 mmol/L (98-107) H 04/13/18 15:18 Carbon Dioxide 24 mmol/L (21-32) 04/13/18 15:18 Anion Gap 9 MMOL/L (8-16) 04/13/18 15:18 BUN 8 mg/dL (7-18) 04/13/18 15:18 Creatinine 0.6 mg/dL (0.55-1.3) 04/13/18 15:18 Creat Clearance w eGFR > 60 (>60) 04/13/18 15:18 Random Glucose 77 mg/dL (74-106) 04/13/18 15:18 Calcium 9.5 mg/dL (8.5-10.1) 04/13/18 15:18 Total Bilirubin 1.3 mg/dL (0.2-1) H 04/13/18 15:18 AST 214 U/L (15-37) H 04/13/18 15:18 ALT 161 U/L (13-61) H 04/13/18 15:18 Alkaline Phosphatase 179 U/L (45-117) H 04/13/18 15:18 Total Protein 7.5 g/dl (6.4-8.2) 04/13/18 15:18 Albumin 3.6 g/dl (3.4-5.0) 04/13/18 15:18 Total Amylase 70 U/L (25-115) 04/13/18 15:18 Lipase 317 U/L (73-393) 04/13/18 15:18 Serum , Qual Negative 04/13/18 15:18 LFTs elevated but not lipase or amylase wbc normal renal function normal Imaging - Results Ultrasound: Report Reviewed, Image Reviewed (images personally reviewed - multiple small stones in gallbladder, layering posteriorly and many in one end; no farzaneh ductal dilation but cbd marked at 4mm; no wall thickening, gb distended ) MRI: Pending (MRCP pending tonight) Problem List - Problems (1) Calculus of gallbladder without cholecystitis without obstruction Assessment/Plan: admitted to medicine NPO/IVF antibiotics perioperative only DVT prophylaxis pain meds prn - nonnarcotics first line MRCP pending tonight to ensure common duct clear and no pancreatitis trend labs check coags, T&S if MRCP shows cbd stones, will need GI consult for ERCP otherwise, labs in am and likely OR tomorrow Discussed with patient and risks, benefits and alternatives of laparoscopic possible open cholecystectomy, including but not limited to bleeding, infection, injury to adjacent structures, bile leak or ductal injury, intraabdominal abscess, incisional hernia, need for further procedures; alternatives include delayed or no surgery - risks of this include recurrence of biliary colic, cholecystitis, pancreatitis or worse. All questions answered. Patient agreeable to operation - will take to OR once duct is cleared by imaging or GI. Informed consent signed for same and placed on chart. Code(s): K80.20 - CALCULUS OF GALLBLADDER W/O CHOLECYSTITIS W/O OBSTRUCTION (2) Diseases of the digestive system complicating the puerperium Assessment/Plan: 8 weeks not Code(s): O99.63 - DISEASES OF THE DIGESTIVE SYSTEM COMPLICATING THE PUERPERIUM (3) Hyperbilirubinemia Code(s): E80.6 - OTHER DISORDERS OF BILIRUBIN METABOLISM (4) Epigastric pain Code(s): R10.13 - EPIGASTRIC PAIN (5) Obesity (BMI 35.0-39.9 without comorbidity) Code(s): E66.9 - OBESITY, UNSPECIFIED
[2018-04-13 20:38] LABS: INR 1.08 (0.83-1.09); PROTHROMBIN TIME (PATIENT) 12.7 SEC (9.7-13.0)
[2018-04-13 22:53] VITALS: BMI 37.0
[2018-04-14 08:03] LABS: BASO % 0.7 % (0-2.0); EOS % 1.7 % (0-4.5); HEMATOCRIT 35.4 % (32.4-45.2); HEMOGLOBIN 11.8 GM/dL (10.7-15.3); LYMPH % 43.4 % (8-40); MCH 28.1 pg (25.7-33.7); MCHC 33.3 g/dl (32.0-36.0); MEAN CELL VOLUME 84.3 fl (80-96); MEAN PLT VOLUME 8.2 fl (7.5-11.1); MONO % 7.4 % (3.8-10.2); NEUT % 46.8 % (42.8-82.8); PLATELET COUNT 231 K/MM3 (134-434); RDW 12.9 % (11.6-15.6); WHITE BLOOD COUNT 5.3 K/mm3 (4.0-10.0)
--- NOTE | 2018-04-14 08:47 | HP ---
Admitting History and Physical - Primary Care Physician PCP: Alin Townsend - Admission Chief Complaint: Epigastric pain radiates to back History of Present Illness: 27 yrs old F healthy no H/O HTN, DM not on any medication, unlimited exercise tolerance recent normal vaginal delivery 2 months ago, present with sever epigastric pain 10/10, colicky radiates to back after eating Russian food night before, developed nayuse had 2 episode of vomiting contains freshly ingested food no coffee ground or blood, no fever, chills, dysuria, patient has been having similar pian of low integrity for past 3- 4, intially visited [facility] urgent care w/u showed showing elevated LFTs but normal wbc and llipse, increased D-dimer and sent her to ER to r/o PE, considering elevated JLFTs US abd performed that showed multiple small gallstones without signs of cholecystitis. evaluated by usurgery consult and MRCP performed result awaited, no fever, chills or pain since hospitalization able to pass flatus. - Past Medical History ...: No ...Para: 1 (2m ago today) Heme/Onc: No: Hypercoaguable State (negative for lupus anticoagulant per pt per pt's MD) - Smoking History Smoking history: Never smoked Have you smoked in the past 12 months: No - Alcohol/Substance Use Hx Alcohol Use: Yes (social/occasional) History of Substance Use: reports: None - Social History ADL: Independent Occupation: dental hygienist History of Recent Travel: No Home Medications - Allergies Allergies/Adverse Reactions: Allergies Allergy/AdvReac Type Severity Reaction Status Date / Time No Known Allergies Allergy Verified 04/13/18 14:05 - Home Medications Home Medications: Ambulatory Orders Blisovi Fe 1-20 Tablet 1 - 20 mcg PO DAILY 04/13/18 Family Disease History - Family Disease History Family Disease History: Heart Disease: Father (HTN), Mother (HTN) Other Family History: others with gallbladder problems Review of Systems - Review of Systems Constitutional: denies: Chills, Diaphoresis, Fever, Lethargy, Loss of Appetite Eyes: denies: Blind Spots, Blurred Vision HENT: denies: Difficult Swallowing, Ear Discharge, Ear Pain Neck: denies: Decreased ROM, Lumps, Pain on Movement Cardiovascular: denies: Chest Pain, Edema, Palpitations Respiratory: denies: Exercise Intolerance, Hemoptysis Gastrointestinal: reports: Abdominal Pain, Bloating, Nausea, Vomiting. denies: Constipation, Diarrhea, Dysphagia Genitourinary: denies: Burning, Discharge, Dysuria Breasts: denies: Breast Implants Musculoskeletal: denies: Back Pain, Crepitus Integumentary: denies: Blister, Bruising, Change in Color Neurological: denies: Change in LOC, Change in Speech Endocrine: denies: Excessive Sweating, Flushing, Increased Hunger Hematology/Lymphatic: denies: Easily Bruised, Excessive Bleeding Physical Examination Vital Signs: Vital Signs Temperature 99.2 F 04/14/18 07:42 Pulse Rate 56 L 04/14/18 07:42 Respiratory Rate 18 04/14/18 07:42 Blood Pressure 122/70 04/14/18 07:42 O2 Sat by Pulse Oximetry (%) 98 04/13/18 22:48 Constitutional: Yes: Well Nourished, No Distress, Calm Eyes: Yes: Conjunctiva Clear, EOM Intact HENT: Yes: Atraumatic, Normocephalic Neck: Yes: Supple, Trachea Midline. No: Decreased ROM, Lymphadenopathy Cardiovascular: Yes: Regular Rate and Rhythm, S1, S2. No: JVD, Murmur Respiratory: Yes: Regular, CTA Bilaterally, SOB Gastrointestinal: Yes: Normal Bowel Sounds, Soft, Abdomen, Obese, Tenderness, Epigastrium, Tenderness, Rebound Extremities: Yes: Calf Tenderness Edema: No Peripheral Pulses: Left Doralis Pedis: 2+, Right Dorsalis Pedis: 2+ Neurological: Yes: Alert, Oriented ...Motor Strength: WNL, LLE, RUE, RLE Labs: CBC, BMP 04/14/18 06:51 CBC,CMP WBC 5.3 K/mm3 (4.0-10.0) 04/14/18 06:51 RBC 4.20 M/mm3 (3.60-5.2) 04/14/18 06:51 Hgb 11.8 GM/dL (10.7-15.3) 04/14/18 06:51 Hct 35.4 % (32.4-45.2) 04/14/18 06:51 MCV 84.3 fl (80-96) 04/14/18 06:51 MCH 28.1 pg (25.7-33.7) 04/14/18 06:51 MCHC 33.3 g/dl (32.0-36.0) 04/14/18 06:51 RDW 12.9 % (11.6-15.6) 04/14/18 06:51 Plt Count 231 K/MM3 (134-434) D 04/14/18 06:51 MPV 8.2 fl (7.5-11.1) 04/14/18 06:51 Absolute Neuts (auto) 2.5 K/mm3 (1.5-8.0) 04/14/18 06:51 Neutrophils % 46.8 % (42.8-82.8) D 04/14/18 06:51 Lymphocytes % 43.4 % (8-40) H D 04/14/18 06:51 Monocytes % 7.4 % (3.8-10.2) 04/14/18 06:51 Eosinophils % 1.7 % (0-4.5) D 04/14/18 06:51 Basophils % 0.7 % (0-2.0) 04/14/18 06:51 Nucleated RBC % 0 % (0-0) 04/14/18 06:51 Sodium 141 mmol/L (136-145) 04/13/18 15:18 Potassium 4.3 mmol/L (3.5-5.1) 04/13/18 15:18 Chloride 108 mmol/L (98-107) H 04/13/18 15:18 Carbon Dioxide 24 mmol/L (21-32) 04/13/18 15:18 Anion Gap 9 MMOL/L (8-16) 04/13/18 15:18 BUN 8 mg/dL (7-18) 04/13/18 15:18 Creatinine 0.6 mg/dL (0.55-1.3) 04/13/18 15:18 Creat Clearance w eGFR > 60 (>60) 04/13/18 15:18 Random Glucose 77 mg/dL (74-106) 04/13/18 15:18 Calcium 9.5 mg/dL (8.5-10.1) 04/13/18 15:18 Total Bilirubin 1.3 mg/dL (0.2-1) H 04/13/18 15:18 AST 214 U/L (15-37) H 04/13/18 15:18 ALT 161 U/L (13-61) H 04/13/18 15:18 Alkaline Phosphatase 179 U/L (45-117) H 04/13/18 15:18 Total Protein 7.5 g/dl (6.4-8.2) 04/13/18 15:18 Albumin 3.6 g/dl (3.4-5.0) 04/13/18 15:18 Total Amylase 70 U/L (25-115) 04/13/18 15:18 Lipase 317 U/L (73-393) 04/13/18 15:18 Serum , Qual Negative 04/13/18 15:18 Imaging - Results Ultrasound: Report Reviewed (MMultiple Gall stones no acute cholycystitis) Other: Report Reviewed (MRCP : result pending) Problem List - Problems (1) Biliary colic Assessment/Plan: Present with Billiary colic , MRCP result pending normal TWBC NPO, Pain control , IV Hydration F/U Surgery recommondation Code(s): K80.50 - CALCULUS OF BILE DUCT W/O CHOLANGITIS OR CHOLECYST W/O OBST (2) Transaminitis Assessment/Plan: Due to Billiry colic wuill F/U serial LFTs F/U Hepatitis panerl Code(s): R74.0 - NONSPEC ELEV OF LEVELS OF TRANSAMNS & LACTIC ACID DEHYDRGNSE (3) Obesity (BMI 35.0-39.9 without comorbidity) Assessment/Plan: Nutritional consult as out patient Code(s): E66.9 - OBESITY, UNSPECIFIED (4) Pre-op evaluation Assessment/Plan: 27 yrs old F no significant PMH , excellent exercise tolerance , no clinical sign of de-compensated CHF or arrtymia, admitted with bubba billary colic, patient has low cardio Pulmonary risk for intermediate risk surgery (Laproscopic /open Cholycytectomy), if indicated surgery can be performed without any addition w/u for cardio Pulmonary risk stratification, elevated D-Dimmers probably due to Post- status no clinical sign of DVT or PE. Code(s): Z01.818 - ENCOUNTER FOR OTHER PREPROCEDURAL EXAMINATION
[2018-04-14 08:58] LABS: ALBUMIN 2.9 g/dl (3.4-5.0); ALK PHOS 138 U/L (45-117); ANION GAP 7 MMOL/L (8-16); BILIRUBIN,TOTAL 0.7 mg/dL (0.2-1); BLOOD UREA NITROGEN 7 mg/dL (7-18); CALCIUM 8.2 mg/dL (8.5-10.1); CHLORIDE 113 mmol/L (98-107); CO2 23 mmol/L (21-32); CREATININE 0.6 mg/dL (0.55-1.3); GLUCOSE,RANDOM 73 mg/dL (74-106); LIPASE 163 U/L (73-393); POTASSIUM 4.1 mmol/L (3.5-5.1); SGOT/AST 69 U/L (15-37); SGPT/ALT 102 U/L (13-61); SODIUM 142 mmol/L (136-145); TOT PROT 6.1 g/dl (6.4-8.2)
[2018-04-14 10:20] LABS: BILIRUBIN,DIRECT 0.2 mg/dL (0.0-0.2)
[2018-04-14] MEDS ORDERED: PROMETHAZINE HCL 25 MG/1 ML VIAL IVPUSH PRN (10:45)
[2018-04-14] MEDS ORDERED: ONDANSETRON 4 MG/2 ML VIAL IVPUSH PRN ×2 (10:45→14:56)
[2018-04-14] MEDS ORDERED: LACTATED RINGERS SOLUTION 1,000 ML IV SCH ×2 (10:45→14:56)
[2018-04-14] MEDS ORDERED: MIDAZOLAM HCL 2 MG/2 ML SINGLE DOSE VIAL ONE (12:59)
[2018-04-14] MEDS ORDERED: PROPOFOL 20 ML ONE ×2 (12:59)
[2018-04-14] MEDS ORDERED: ROCURONIUM BROMIDE 50 MG/5 ML VIAL ONE (12:59)
[2018-04-14] MEDS ORDERED: LIDOCAINE HCL/PF 2% SDV 5ML VIAL ONE (13:00)
[2018-04-14] MEDS ORDERED: CEFOXITIN SODIUM 2 GM IVPB ONE (13:08)
[2018-04-14] MEDS ORDERED: BUPIVACAINE HCL/PF 0.5% (5MG/ML) 10 ML VIAL ONE (13:08)
[2018-04-14] MEDS ORDERED: DEXAMETHASONE SOD PHOSPHATE 4 MG/1 ML VIAL ONE (13:09)
[2018-04-14] MEDS ORDERED: cefOXitin SODIUM 2 GM VIAL (RESTRICTED TO ID) IVPB ONE (13:18)
[2018-04-14] MEDS ORDERED: BUPIVACAINE HCL/PF 0.5% (5MG/ML) 10 ML VIAL IJ ONE ×2 (13:54)
[2018-04-14] MEDS ORDERED: KETOROLAC TROMETHAMINE 30 MG/1 ML VIAL ONE (14:04)
[2018-04-14] MEDS ORDERED: GLYCOPYRROLATE 0.2 MG/1 ML VIAL ONE (14:18)
[2018-04-14] MEDS ORDERED: NEOSTIGMINE METHYLSULFATE 0.5 MG/ML - 10 ML MDV ONE (14:19)
--- NOTE | 2018-04-14 14:44 | OP ---
Operative Note - Note: Operative Date: 04/14/18 Pre-Operative Diagnosis: symptomatic cholelithiasis Operation: laparoscopic cholecystectomy Findings: distended gallbladder with at least a few very small stones; critical view identified; gallbladder peeled off part of liver bed - cauterized for hemostasis ; one small hole with little bile spill - field irrigated and suctioned clear Post-Operative Diagnosis: Other (symptomatic cholelithiasis with chronic cholecystitis) Surgeon: Domingo Syed Garden Machinery Mechanic: Alex Garsia Anesthesiologist/BOILER COVERER: Rojas Torres Anesthesia: General, Local (20 ml 0.5% marcaine) Specimens Removed: gallbladder to pathology Estimated Blood Loss (mls): 15 Fluid Volume Replaced (mls): 700 (crystalloid) Operative Report Dictated: Yes
[2018-04-14] MEDS ORDERED: ACETAMINOPHEN 1000 MG/100 ML VIAL (NON FORMULARY) IVPB ONE ×2 (14:48→14:56)
[2018-04-14] MEDS ORDERED: oxyCODONE HCL 5 MG TABLET PO PRN ×2 (14:49→14:56)
[2018-04-14] MEDS ORDERED: ACETAMINOPHEN INJECTION 100 ML IVPB ONE (14:50)
[2018-04-14] MEDS ORDERED: IBUPROFEN 600 MG TABLET (FP) PO SCH (18:00)
[2018-04-14] MEDS: IBUPROFEN 600 MG TABLET (FP) PO SCH (18:58)
[2018-04-14] MEDS ORDERED: CEFOXITIN SODIUM 2 GM in DEXTROSE 5%-WATER - 100 ML IVPB ONE (21:00)
[2018-04-14] MEDS ORDERED: ACETAMINOPHEN 325 MG TABLET (FP) PO SCH (21:00)
[2018-04-14] MEDS: ACETAMINOPHEN 325 MG TABLET (FP) PO SCH (21:50)
[2018-04-15] MEDS: IBUPROFEN 600 MG TABLET (FP) PO SCH ×2 (00:50→06:36)
[2018-04-15] MEDS: ACETAMINOPHEN 325 MG TABLET (FP) PO SCH ×2 (03:54→09:31)
--- NOTE | 2018-04-15 08:47 | PN ---
Progress Note, Physician Chief Complaint: Pt. sitting comfortably in bed, pain controlled, no GA complaints. - Current Medication List Current Medications: Active Medications Acetaminophen (Tylenol -) 650 mg PO Q6H [facility] Last Admin: 04/15/18 03:54 Dose: 650 mg Lactated Ringer's (Lactated Ringers Solution) 1,000 mls @ 125 mls/hr IV ASDIR [facility] Last Admin: 04/14/18 15:30 Dose: 50 mls Ibuprofen (Motrin -) 600 mg PO Q6H [facility] Last Admin: 04/15/18 06:36 Dose: 600 mg Ondansetron HCl (Zofran Injection) 4 mg IVPUSH Q6H PRN PRN Reason: NAUSEA Oxycodone HCl (Roxicodone -) 5 mg PO Q6H PRN PRN Reason: Pain Level 7 - 10 BREAKTHROUGH Last Admin: 04/14/18 16:33 Dose: 5 mg - Objective Vital Signs: Vital Signs Temperature 98.3 F 04/15/18 02:00 Pulse Rate 51 L 04/15/18 02:00 Respiratory Rate 20 04/15/18 02:00 Blood Pressure 119/59 L 04/15/18 02:00 O2 Sat by Pulse Oximetry (%) 98 04/14/18 21:00 Constitutional: Yes: Well Nourished, No Distress, Calm Musculoskeletal: Yes: WNL Neurological: Yes: WNL, Alert, Oriented Labs: CBC, BMP 04/14/18 06:51 04/14/18 06:51 INR, PTT INR 1.08 (0.83-1.09) 04/13/18 20:00 Assessment/Plan POD#1 s/p laparoscopic appendectomy under general anesthesia. Doing well. D/C from anesthesia care.
--- NOTE | 2018-04-15 11:41 | PN ---
Progress Note, Physician History of Present Illness: Pt s/p lap carmen for symptomatic cholelithiasis and chronic cholecystitis noted at OR, seen and examined sitting up in chair with present. She is feeling better, has incisional pain managed well with nonnarcotic meds. She has ambulated, voided, tolerating light diet. No flatus or BM yet. Completed periop antibiotic last night. - Current Medication List Current Medications: Active Medications Acetaminophen (Tylenol -) 650 mg PO Q6H [facility] Last Admin: 04/15/18 09:31 Dose: 650 mg Lactated Ringer's (Lactated Ringers Solution) 1,000 mls @ 125 mls/hr IV ASDIR [facility] Last Admin: 04/14/18 15:30 Dose: 50 mls Ibuprofen (Motrin -) 600 mg PO Q6H [facility] Last Admin: 04/15/18 06:36 Dose: 600 mg Ondansetron HCl (Zofran Injection) 4 mg IVPUSH Q6H PRN PRN Reason: NAUSEA Oxycodone HCl (Roxicodone -) 5 mg PO Q6H PRN PRN Reason: Pain Level 7 - 10 BREAKTHROUGH Last Admin: 04/14/18 16:33 Dose: 5 mg - Objective Vital Signs: Vital Signs Temperature 98.3 F 04/15/18 02:00 Pulse Rate 51 L 04/15/18 02:00 Respiratory Rate 20 04/15/18 02:00 Blood Pressure 119/59 L 04/15/18 02:00 O2 Sat by Pulse Oximetry (%) 98 04/14/18 21:00 Constitutional: Yes: No Distress, Calm, Obese Eyes: Yes: Conjunctiva Clear, EOM Intact. No: Sclera Icterus HENT: Yes: Atraumatic, Normocephalic Gastrointestinal: Yes: Soft, Abdomen, Obese, Tenderness (mild RUQ and also incisional, no R/G) Extremities: No: Cool, Cyanosis Integumentary: Yes: Incision (x4 dressed). No: Jaundice, Rash Wound/Incision: Yes: Steri Strips (under dressings), Dressing Dry and Intact (x4 ). No: Dressing Removed Neurological: Yes: Alert, Oriented Labs: no new labs Problem List - Problems (1) Calculus of gallbladder without cholecystitis without obstruction Assessment/Plan: POD1 s/p laparoscopic cholecystectomy doing well tolerating po, voiding, ambulating up in chair po pain meds alternating tylenol and ibuprofen with good effect incisions dressed and c/d/i ok for d/c home with lifting restrictions to f/u in 2 weeks - gave her my card instructions in d/c plan Code(s): K80.20 - CALCULUS OF GALLBLADDER W/O CHOLECYSTITIS W/O OBSTRUCTION (2) Diseases of the digestive system complicating the puerperium Assessment/Plan: 8 weeks not - no concerns Code(s): O99.63 - DISEASES OF THE DIGESTIVE SYSTEM COMPLICATING THE PUERPERIUM (3) Hyperbilirubinemia Assessment/Plan: normalized prior to surgery Code(s): E80.6 - OTHER DISORDERS OF BILIRUBIN METABOLISM (4) Epigastric pain Code(s): R10.13 - EPIGASTRIC PAIN (5) Obesity (BMI 35.0-39.9 without comorbidity) Code(s): E66.9 - OBESITY, UNSPECIFIED
--- NOTE | 2018-04-15 12:37 | DS ---
Physical Examination Vital Signs: Vital Signs Temperature 98.3 F 04/15/18 02:00 Pulse Rate 51 L 04/15/18 02:00 Respiratory Rate 20 04/15/18 02:00 Blood Pressure 119/59 L 04/15/18 02:00 O2 Sat by Pulse Oximetry (%) 98 04/14/18 21:00 - Constitutional: Yes: Well Nourished, No Distress, Calm Eyes: Yes: Conjunctiva Clear, EOM Intact HENT: Yes: Atraumatic, Normocephalic Neck: Yes: Supple, Trachea Midline. No: Decreased ROM, Lymphadenopathy Cardiovascular: Yes: Regular Rate and Rhythm, S1, S2. No: JVD, Murmur Respiratory: Yes: Regular, CTA Bilaterally, SOB Gastrointestinal: S/P Laproscopic cholycystectomy Normal Bowel Sounds, Soft, Abdomen, Obese, Tenderness, Epigastrium, Tenderness, Rebound Extremities: Yes: Calf Tenderness Edema: No Peripheral Pulses: Left Doralis Pedis: 2+, Right Dorsalis Pedis: 2+ Neurological: Yes: Alert, Oriented, Motor Strength: WNL, LLE, RUE, RLE Labs: CBC, BMP 04/14/18 06:51 04/14/18 06:51 Discharge Summary Reason For Visit: BIALARY COLIC Current Active Problems Biliary colic (Acute) Calculus of gallbladder without cholecystitis without obstruction (Acute) Diseases of the digestive system complicating the puerperium (Acute) Epigastric pain (Acute) Hyperbilirubinemia (Acute) Obesity (BMI 35.0-39.9 without comorbidity) (Acute) Pre-op evaluation (Acute) Transaminitis (Acute) Hospital Course: 7 yrs old F healthy no H/O HTN, DM not on any medication, unlimited exercise tolerance recent normal vaginal delivery 2 months ago, present with sever epigastric pain 10/10, colicky radiates to back after eating Serbian food night before, developed nayuse had 2 episode of vomiting contains freshly ingested food no coffee ground or blood, no fever, chills, dysuria, patient has been having similar pian of low integrity for past 3- 4, intially visited [facility] urgent care w/u showed showing elevated LFTs but normal wbc and llipse, increased D-dimer and sent her to ER to r/o PE, considering elevated JLFTs US abd performed that showed multiple small gallstones without signs of cholecystitis. evaluated by usurgery consult and MRCP performed result awaited, no fever, chills or pain since hospitalization able to pass flatus. Condition: Good - Instructions Diet, Activity, Other Instructions: Postoperative instructions: You had a laparoscopic cholecystectomy on 04/14/[address] Domingo Syed of [facility]. Activity: Resume your usual activities gradually, but no heavy exertion or lifting more than 10-15 pounds for 1 month. Remove dressings 48 hours after surgery; sticky tapes underneath will fall off by themselves. You may shower daily starting then, just pat the incision areas dry. No bath or swimming until skin incisions have healed. Eat lightly at first, but advance to your usual diet as tolerated. Pain: For pain, you may use and alternate Tylenol (acetaminophen) 1-2 pills and/ or ibuprofen 200 mg (1-3 pills) every 6 hours each as needed; this means that you can take one OR the other at 3-hour intervals. Do not take more than 4000mg of acetaminophen in a day. Take medications as prescribed or indicated on the labeling. Follow-up: Call Dr. Syed's office at [phone] to make your postop appointment (Monday in approximately 2 weeks after surgery). Clinic is held in the [facility] on the first floor of [facility]. Call the office if you have: * increasing pain not responsive to pain medication * fever of 101F or higher * vomiting * unusual or increasing bleeding or drainage from wounds * increasing redness or swelling at wound sites Also, see your primary medical doctor within 1-2 weeks, [address]. Townsend. Referrals: Alin Townsend MD [Primary Care Provider] - Domingo Syed MD [Staff Physician] - 04/25/18 (CALL FOR APPOINTMENT) Disposition: HOME - Home Medications Comprehensive Discharge Medication List: Ambulatory Orders Blisovi Fe 1-20 Tablet 1 - 20 mcg PO DAILY 04/13/18 Acetaminophen [Tylenol .Regular Strength -] 650 mg PO Q6H tablet 04/15/18 Ibuprofen [Motrin -] 600 mg PO Q6H tablet 04/15/18
[2018-04-15 13:24] VITALS: BP 116/68; PULSE 65; TEMP 98.6
--- NOTE | 2018-04-19 14:14 | PATH ---
Surgical Pathology Report Patient Name: TERESITA PALAFOX Med. Rec. #: [id number] /Age/Gender: 1990 (Age: 27) / F Account: [id number] Location: [facility] MED/SURG Taken: 04/14/2018 Received: 04/16/2018 Reported: 04/19/2018 Physicians: Domingo Syed M.D. PHYSICIAN EMERGENCY DEPT Specimen(s) Received GALLBLADDER Clinical History Symptomatic choledocholithiasis Final Diagnosis GALLBLADDER, CHOLECYSTECTOMY: CHRONIC CHOLECYSTITIS, CHOLESTEROLOSIS, AND CHOLELITHIASIS. ONE BENIGN REACTIVE LYMPH NODE. Electronically Signed Rush Cummings M.D. Gross Description Received in formalin, labeled "gallbladder," is an 8.0 x 2.0 x 2.0 cm. gallbladder with a 0.1 cm. in length portion of cystic duct attached. One paracystic lymph node is present. The outer surface varies from smooth to shaggy. The lumen contains with bile and multiple stones ranging from 0.1-0.2 cm in greatest dimension. The mucosa is focally superficial eroded. The wall of the gallbladder measures 0.2cm. in thickness. Data Processing Specialist sections are submitted in one cassette. NASH/04/16/2018 angel/04/16/2018
== END 2018-04-15 14:03 | disposition home or self-care (01) | DRG 419 ==
LOC: JER 14:01 → JERBED 19:27 → J8W 22:15
PROVIDERS: ADMIT Internal Medicine; ATTEND Internal Medicine
PROC: 0FT44ZZ Resection of Gallbladder, Percutaneous Endoscopic Approach (ICD-10-PCS; principal; 2018-04-14 10:00)
DX: K80.10 Calculus of gallbladder with chronic cholecystitis without obstruction (principal); R74.0 Nonspecific elevation of levels of transaminase and lactic acid dehydrogenase [LDH]; E66.9 Obesity, unspecified; Z68.37 Body mass index [BMI] 37.0-37.9, adult; E80.6 Other disorders of bilirubin metabolism; R10.13 Epigastric pain
CPT/HCPCS: 36415; 74181-TC; 76705-TC; 80053; 80076; 82150; 83690; 84703; 85025; 85610; 88304-TC; 94760; 99283-25; J0131; J7030

== ENCOUNTER 2021-08-25 08:14 | Inpatient (IN) | payer OTHER ==
[2021-08-25] MEDS ORDERED: OXYTOCIN 30 UNITS in 0.9% NS 30 UNIT/500 ML INFUS.BAG IVPB SCH (09:15)
[2021-08-25] MEDS: ELECTROLYTE-148 SOLN 1,000 ML IV SCH (09:35)
[2021-08-25] MEDS ORDERED: NALOXONE HCL 0.4 MG/ML VIAL IVPUSH PRN (10:34)
[2021-08-25] MEDS ORDERED: BUPIVACAINE HCL/PF 0.25% (2.5MG/ML) 10 ML VIAL ONE (10:36)
[2021-08-25] MEDS ORDERED: FENTANYL/BUPIVACAINE/NS/PF - PCEA - 50 ML DISP.SYRIN EP ONE (10:37)
[2021-08-25] MEDS: FENTANYL/BUPIVACAINE/NS/PF - PCEA - 50 ML DISP.SYRIN EP SCH (10:55)
[2021-08-25] MEDS ORDERED: OXYTOCIN 30 UNITS in 0.9% NS 30 UNIT/500 ML INFUS.BAG IVPB ONE (11:39)
[2021-08-25] MEDS ORDERED: LIDOCAINE HCL 1% PRESERVATIVE FREE - 30ML VIAL ONE (13:43)
[2021-08-25] MEDS ORDERED: OXYTOCIN 20 UNITS in 0.9% NS 20 UNIT/1,000 ML INFUS.BAG IV ONE (13:44)
[2021-08-25] MEDS ORDERED: BISACODYL 10 MG SUPP.RECT RC PRN (14:17)
[2021-08-25] MEDS ORDERED: WITCH HAZEL 50% (TUCKS) 40 PAD/JAR PAD TP PRN (14:17)
[2021-08-25] MEDS ORDERED: METHYLERGONOVINE MALEATE 0.2 MG/1 ML AMP IM PRN (14:17)
[2021-08-25] MEDS ORDERED: BENZOCAINE 28 GM HEMORRHOIDAL OINTMENT TP PRN (14:17)
[2021-08-25] MEDS ORDERED: BENZOCAINE 20% 57 GM BOTTLE TP PRN (14:17)
[2021-08-25] MEDS ORDERED: OXYTOCIN 20 UNITS in 0.9% NS 20 UNIT/1,000 ML INFUS.BAG IV SCH (14:30)
[2021-08-25] MEDS ORDERED: ACETAMINOPHEN 325 MG TABLET (FP) ONE (15:56)
[2021-08-25] MEDS: ACETAMINOPHEN 325 MG TABLET (FP) PO PRN ×2 (16:00→20:35)
[2021-08-25] MEDS: FERROUS SO4 325 MG TABLET (FP) PO SCH (17:38)
[2021-08-25] MEDS: IBUPROFEN 600 MG TABLET (FP) PO PRN (18:19)
[2021-08-26] MEDS: IBUPROFEN 600 MG TABLET (FP) PO PRN ×3 (06:00→17:54)
[2021-08-26 08:29] LABS: BASO % 0.2 % (0-2.0); HEMOGLOBIN 11.6 GM/dL (10.7-15.3); LYMPH % 25.4 % (8-40); MCH 29.9 pg (25.7-33.7); MCHC 34.2 g/dl (32.0-36.0); MEAN CELL VOLUME 87.4 fl (80-96); MEAN PLT VOLUME 8.3 fl (7.5-11.1); MONO % 6.5 % (3.8-10.2); NEUT % 66.9 % (42.8-82.8); PLATELET COUNT 210 10^3/uL (134-434); RBC 3.89 M/mm3 (3.60-5.2); RDW 14.1 % (11.6-15.6)
[2021-08-26] MEDS: FERROUS SO4 325 MG TABLET (FP) PO SCH ×3 (09:32→16:36)
[2021-08-26] MEDS: ACETAMINOPHEN 325 MG TABLET (FP) PO PRN (09:32)
[2021-08-26] MEDS: PRENATAL VITAMINS W/ FOLIC ACID TABLET (FP) PO SCH (09:32)
[2021-08-26] MEDS: FENTANYL/BUPIVACAINE/NS/PF - PCEA - 50 ML DISP.SYRIN EP SCH (19:31)
[2021-08-26] MEDS ORDERED: SENNOSIDES/DOCUSATE COMBO (SENNA PLUS) TABLET (UD) PO PRN (22:00)
[2021-08-27] MEDS: BISMUTH SUBSALICYLATE 262 MG/15 ML BTL PO SCH ×2 (03:26→09:38)
[2021-08-27] MEDS: IBUPROFEN 600 MG TABLET (FP) PO PRN ×2 (03:38→09:41)
[2021-08-27] MEDS: FERROUS SO4 325 MG TABLET (FP) PO SCH (08:51)
[2021-08-27] MEDS: ELECTROLYTE-148 SOLN 1,000 ML IV SCH (09:36)
[2021-08-27] MEDS: PRENATAL VITAMINS W/ FOLIC ACID TABLET (FP) PO SCH (09:37)
[2021-08-27 10:46] VITALS: BP 132/84; PULSE 84; TEMP 98.3
== END 2021-08-27 11:25 | disposition home or self-care (01) | DRG 807 ==
LOC: JLDR 08:14 → J3W 16:10
PROVIDERS: ADMIT Obstetrics & Gynecology; ATTEND Obstetrics & Gynecology
PROC: 0HQ9XZZ Repair Perineum Skin, External Approach (ICD-10-PCS; principal; 2021-08-25)
PROC: 10E0XZZ Delivery of Products of Conception, External Approach (ICD-10-PCS; 2021-08-25)
DX: O99.214 Obesity complicating childbirth (principal); Z37.0 Single live birth; E66.9 Obesity, unspecified; O70.0 First degree perineal laceration during delivery; Z3A.39 39 weeks gestation of pregnancy
CPT/HCPCS: 36415; 59409; 85025